=== PATIENT | male | born 1970 | race Caucasian/White ===

== ENCOUNTER 2021-07-07 11:56 | Emergency (ER) | payer OTHER ==
[2021-07-07 13:41] LABS: Absolute Neutrophil Ct (ANC) 7.68 (1.4-6.9); BASOPHIL % 0.4 % (0.0-0.4); Basophil (Absolute #) 0.04 (0-0.4); Eosinophil % 0.2 % (0.00-5.0); Eosinophil (Absolute #) 0.02 (0-0.5); Hematocrit 41.7 % (42-50); Hemoglobin 14.1 gm/dl (12.5-18.0); Lymphocyte (Absolute #) 2.06 (1.0-4.6); Lymphocytes % 19.4 % (24.0-44.0); Mean Cell Volume 92.7 fl (78-100); Mean Corpuscular Hemoglobin 31.3 pg (26-32); Mean Corpuscular Hgb Concent. 33.8 g/dl (32-36); Mean Platelet Volume 10.1 fl (7.5-11.0); Monocytes % 7.5 % (0.0-12.0); Neutrophil % 72.5 % (36.0-66.0); Platelet Count 268 K/mm3 (150-450); White Blood Count 10.6 K/mm3 (4.0-10.5)
[2021-07-07 14:01] LABS: ALBUMIN 4.7 g/dL (3.5-5.0); ALKALINE PHOSPHATASE 74 U/L (38-126); ANION GAP 14.4 MEQ/L (5-15); BLOOD UREA NITROGEN 22 mg/dL (9-20); CHLORIDE 101 mmol/L (98-107); Calcium 10.3 mg/dL (8.4-10.2); Carbon Dioxide 28 mmol/L (22-30); Creatinine 1 1.03 mg/dL (0.66-1.25); EST GLOMERULAR FILTRATION RATE > 60.0 ML/MIN; Glucose 105 mg/dL (74-106); LIPASE 246 U/L (23-300); Potassium 5.1 mmol/L (3.5-5.1); SGOT/AST 36 U/L (17-59); SGPT/ALT 28 U/L (0-50); SODIUM 139 mmol/L (137-145); Total Protein 7.9 g/dL (6.3-8.2)
[2021-07-07] MEDS ORDERED: DOLOPHINE 10MG Tablet PO STA (15:24)
--- NOTE | 2021-07-07 15:39 | XRAY ---
Indication: Abdomen pain. "Withdrawal symptoms." Multiple contiguous axial images obtained through the abdomen and pelvis without contrast. Comparison: None Lung bases demonstrate minimal dependent atelectasis. Heart not enlarged. Noncontrasted stomach and bowel loops appear nonobstructed. Normal air-filled appendix. No free fluid/air. Remaining liver, gallbladder, pancreas, spleen, adrenal glands, kidneys, ureters, bladder, and aorta appear unremarkable for noncontrast exam. Osseous structures intact with mild/moderate degenerative changes throughout the thoracolumbar spine greatest at L3-L4. Also bilateral L3 spondylolysis with 1 cm spondylolisthesis. Impression: 1. Multilevel degenerative spondylosis and L3 spondylolysis with grade 1-[address] abdomen/pelvis without contrast exam is negative.
--- NOTE | 2021-07-07 15:52 | ERPHSYRPT ---
- History of Present Illness Time Seen by Provider: 07/07/21 12:30 Source: patient Patient Subjective Stated Complaint: PT states "I am withdrawing from methadone. I have not had any since ." Triage Nursing Assessment: Pt presented alert and oriented X 3, skin wpd Pt ambulates with an upright steady gait, able to speak in clear full sentences pt in no apprent respiratory distress. Pt moaning. Physician History: Patient is a 51-year-old male presents to our ED for evaluation of methadone withdrawal. Patient is a senior living inmate. He has been sober for the past 4 days. Patient states he has not had methadone in 4 days. Patient normally takes 60 mg of methadone daily. Patient complains of abdominal cramping. Patient states he is mildly nauseous. Patient has diarrhea. The medical staff in the senior living has been treating patient with clonidine Zofran and loperamide. Patient states this is not helping. No chest pain or shortness of breath. No nausea vomiting or diaphoresis. No trauma. Symptoms are mild to moderate in intensity. No specific worsening or improving factors. Patient voices no other complaints or concerns at this time. Severity: moderate Modifying Factors: Improves With: nothing Associated Symptoms: abdominal pain, other (Diarrhea) Allergies/Adverse Reactions: Iodine and Iodide Containing Produc Allergy (Severe, Verified 07/07/21 12:21) throat closes up Home Medications: Methadone HCl 10 mg PO DAILY 07/07/21 [History] Hx Tetanus, Diphtheria Vaccination/Date Given: No Hx Influenza Vaccination/Date Given: No Hx Pneumococcal Vaccination/Date Given: No Immunizations Up to Date: Yes Travel Risk - International Travel Have you traveled outside of the country in past 3 weeks: No - Coronavirus Screening Are you exhibiting any of the following symptoms?: No Close contact with a COVID-19 positive Pt in past 14-21 Days: No - Vaccine Status Have you recieved a Covid-19 vaccination: No - Review of Systems Constitutional: No Symptoms, No Fever, No Chills Eyes: No Symptoms Ears, Nose, & Throat: No Symptoms Respiratory: No Symptoms, No Cough, No Dyspnea Cardiac: No Symptoms, No Chest Pain, No Edema, No Syncope Abdominal/Gastrointestinal: No Symptoms, No Abdominal Pain, No Nausea, No Vomiting, No Diarrhea Genitourinary Symptoms: No Symptoms, No Dysuria Musculoskeletal: No Symptoms, No Back Pain, No Neck Pain Skin: No Symptoms, No Rash Neurological: No Symptoms, No Dizziness, No Focal Weakness, No Sensory Changes Psychological: No Symptoms Endocrine: No Symptoms Hematologic/Lymphatic: No Symptoms Immunological/Allergic: No Symptoms All Other Systems: Reviewed and Negative - Past Medical History Pertinent Past Medical History: No - Past Surgical History Past Surgical History: No - Social History Smoking Status: Former smoker Exposure to second hand smoke: Yes Drug Use: other Patient Lives Alone: No - Nursing Vital Signs Nursing Vital Signs: Initial Vital Signs Temperature 98.1 F 07/07/21 12:11 Pulse Rate 70 07/07/21 12:11 Respiratory Rate 20 07/07/21 12:11 Blood Pressure 128/92 07/07/21 12:11 O2 Sat by Pulse Oximetry 97 07/07/21 12:11 Pain Scale Pain Intensity 4 - Physical Exam General Appearance: no apparent distress, alert Eye Exam: PERRL/EOMI, eyes nml inspection Ears, Nose, Throat Exam: normal ENT inspection, TMs normal, pharynx normal, moist mucous membranes Neck Exam: normal inspection, non-tender, supple, full range of motion Respiratory Exam: normal breath sounds, lungs clear, airway intact, No respiratory distress Cardiovascular Exam: regular rate/rhythm, normal heart sounds, normal peripheral pulses Gastrointestinal/Abdomen Exam: soft, normal bowel sounds, tenderness, other (Generalized abdominal tenderness.), No mass, No guarding Back Exam: normal inspection, normal range of motion, No CVA tenderness, No vertebral tenderness Extremity Exam: normal inspection, normal range of motion, pelvis stable Neurologic Exam: alert, oriented x 3, cooperative, normal mood/affect, sensation nml, No motor deficits Skin Exam: normal color, warm, dry, No rash Lymphatic Exam: No adenopathy SpO2 Interpretation: normal SpO2: 98 O2 Delivery: Room Air - Course Nursing assessment & vital signs reviewed: Yes - CT Exams Abdomen/Pelvis CT Interpretation: Tele-radiologist Report (No acute intra-abdominal pathology. Spine arthritis) Ordered Tests: Active Orders 24 hr Category Date Time Status Director Supply STAT Care 07/07/21 13:23 Completed IV Insertion STAT Care 07/07/21 13:23 Completed Pulse Oximetry (ED) STAT Care 07/07/21 13:23 Completed ABDOMEN AND PELVIS W/0 CONTRAS [CT] Stat Exams 07/07/21 14:58 Completed CBC W DIFF Stat Lab 07/07/21 13:35 Completed CMP Stat Lab 07/07/21 13:35 Completed LIPASE Stat Lab 07/07/21 13:35 Completed TROPONIN Q3H Lab 07/07/21 13:35 Completed Medication Summary Discontinued Medications Generic Name Dose Route Start Last Admin Trade Name Razaq PRN Reason Stop Dose Admin Methadone HCl 60 mg 07/07/21 15:24 07/07/21 15:33 Methadone Hcl 10 Mg Tab PO 07/07/21 15:25 60 mg ONCE STA Administration Lab/Rad Data: Laboratory Result Diagrams 07/07/21 13:35 07/07/21 13:35 Laboratory Results 07/07/21 07/07/21 07/07/21 Range/Units 13:35 13:35 13:35 WBC 10.6 H (4.0-10.5) K/mm3 RBC 4.50 (4.1-5.6) M/mm3 Hgb 14.1 (12.5-18.0) gm/dl Hct 41.7 L (42-50) % MCV 92.7 (78-100) fl MCH 31.3 (26-32) pg MCHC 33.8 (32-36) g/dl RDW 13.0 (11.5-14.0) % Plt Count 268 (150-450) K/mm3 MPV 10.1 (7.5-11.0) fl Gran % 72.5 H (36.0-66.0) % Eos # (Auto) 0.02 (0-0.5) Absolute Lymphs (auto) 2.06 (1.0-4.6) Absolute Monos (auto) 0.80 (0.0-1.3) Lymphocytes % 19.4 L (24.0-44.0) % Monocytes % 7.5 (0.0-12.0) % Eosinophils % 0.2 (0.00-5.0) % Basophils % 0.4 (0.0-0.4) % Absolute Granulocytes 7.68 H (1.4-6.9) Basophils # 0.04 (0-0.4) Sodium 139 (137-145) mmol/L Potassium 5.1 (3.5-5.1) mmol/L Chloride 101 (98-107) mmol/L Carbon Dioxide 28 (22-30) mmol/L Anion Gap 14.4 (5-15) MEQ/L BUN 22 H (9-20) mg/dL Creatinine 1.03 (0.66-1.25) mg/dL Estimated GFR > 60.0 ML/MIN Glucose 105 (74-106) mg/dL Calcium 10.3 H (8.4-10.2) mg/dL Total Bilirubin 0.80 (0.2-1.3) mg/dL AST 36 (17-59) U/L ALT 28 (0-50) U/L Alkaline Phosphatase 74 (38-126) U/L Troponin I < 0.012 (0.000-0.034) ng/mL Serum Total Protein 7.9 (6.3-8.2) g/dL Albumin 4.7 (3.5-5.0) g/dL Lipase 246 (23-300) U/L - Progress Progress: improved Progress Note: We contacted medical staff at the senior living. They will work on weaning patient off of his methadone. We will provide patient with a 60 mg of methadone today. We attempted to call the clinic to confirm the dosage however they were closed. Patient feels well at this time, after administration of methadone. He voices no other complaints or concerns at this time. Will discharge to senior living Portions of this note were created with voice recognition technology. There may be grammatical, spelling, punctuation or sound alike errors 07/07/21 16:36 Counseled pt/family regarding: diagnosis, need for follow-up, rad results - Departure Departure Disposition: Home (Spondylolisthesis) Clinical Impression: Arthritis of spine, Spondylolysis, Spondylolisthesis, Methadone withdrawal Condition: Stable Critical Care Time: No Referrals: DOCTOR,NO FAMILY [Primary Care Provider] - Follow up/PCP as directed Additional Instructions: Discharge/Care Plan FAIZAKARUNA Reynoso was seen on 07/07/21 in the Emergency Room. The patient was counseled regarding Diagnosis,Lab results, Imaging studies, need for follow up and when to return to the Emergency Room. Prescriptions given: Discharge Note I have spoken with the patient and/or caregivers. I have explained the patient's condition, diagnosis and treatment plan based on the information available to me at this time. I have answered the patient's and/or caregiver's questions and addressed any concerns. The patient and/or caregivers have as good understanding of the patient's diagnosis, condition and treatment plan as can be expected at this point. The vital signs have been stable. The patient's condition is stable and appropriate for discharge from the emergency department. The patient will pursue further outpatient evaluation with the primary care physician or other designated or consulting physician as outlined in the discharge instructions. The patient and/or caregivers are agreeable to this plan of care and follow-up instructions have been explained in detail. The patient and/or caregivers have received these instruction. The patient/and or caregivers are aware that any significant change in condition or worsening of symptoms should prompt an immediate return to this or the closest emergency department or call 911.
== END 2021-07-07 16:03 | disposition home or self-care (01) ==
LOC: ED 11:56
DX: F11.23 Opioid dependence with withdrawal (principal); R10.9 Unspecified abdominal pain; R19.7 Diarrhea, unspecified; M43.10 Spondylolisthesis, site unspecified; M47.9 Spondylosis, unspecified
CPT/HCPCS: 36000; 36415; 74176; 80053; 83690; 84484; 85025; 93041; 94760; 99284; A9270-GY

== ENCOUNTER 2024-06-27 16:13 | Observation (INO) | payer OTHER ==
[2024-06-27] MEDS ORDERED: Zofran 4 MG/2 ML VIAL ONE (16:25)
[2024-06-27] MEDS ORDERED: MORPHINE SULFATE 4 MG INJ ONE (16:26)
[2024-06-27] MEDS ORDERED: Sodium Chloride 0.9% 1000 ML 1,000 ML ONE (16:26)
[2024-06-27] MEDS: Sodium Chloride 0.9% 1000 ML 1,000 ML IV STA (16:27)
[2024-06-27] MEDS: Zofran 4 MG/2 ML VIAL IV ONE (16:28)
[2024-06-27] MEDS: MORPHINE SULFATE 4 MG INJ IV ONE (16:29)
--- NOTE | 2024-06-27 16:29 | ERPHSYRPT ---
- History of Present Illness Time Seen by Provider: 06/27/24 16:26 Source: patient Exam Limitations: no limitations Physician History: 54-year-old male presents to our ED via EMS for evaluation of a laceration to his left forearm. 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 Injury occur red just prior to arrival. Upon arrival patient had a tourniquet to his left upper extremity. No obvious pulse observed. We let the tourniquet down. Radial pulse not palpable. No active bleeding at the injury site. Patient reports that his tetanus is up-to-date. There appears to be sensation to light touch at the hands. However wrist extension appears to be compromised. The injury is near the general location of the radial nerve. Patient states otherwise healthy. He voices no other complaints or concerns at this time. Portions of this note were created with voice recognition technology. There may be grammatical, spelling, punctuation or sound alike errors Timing/Duration: today Severity: moderate Modifying Factors: Improves With: nothing Associated Symptoms: denies symptoms Allergies/Adverse Reactions: Iodine and Iodide Containing Produc Allergy (Severe, Verified 06/27/24 16:31) throat closes up Home Medications: Acyclovir 400 mg PO UD 06/27/24 [History] Buspirone HCl 5 mg [Buspar 5 mg] 10 mg PO BID 06/27/24 [History] Prazosin HCl 2 mg PO HS 06/27/24 [History] buprenorphine HCL [Buprenorphine HCl] 8 mg SL TID 06/27/24 [History] Hx Tetanus, Diphtheria Vaccination/Date Given: No Hx Influenza Vaccination/Date Given: No Hx Pneumococcal Vaccination/Date Given: No - Review of Systems Constitutional: No Symptoms, No Fever, No Chills Eyes: No Symptoms Ears, Nose, & Throat: No Symptoms Respiratory: No Symptoms, No Cough, No Dyspnea Cardiac: No Symptoms, No Chest Pain, No Edema, No Syncope Abdominal/Gastrointestinal: No Symptoms, No Abdominal Pain, No Nausea, No Vo miting, No Diarrhea Genitourinary Symptoms: No Symptoms, No Dysuria Musculoskeletal: No Symptoms, No Back Pain, No Neck Pain Skin: No Symptoms, No Rash Neurological: No Symptoms, No Dizziness, No Focal Weakness, No Sensory Changes Psychological: No Symptoms Endocrine: No Symptoms Hematologic/Lymphatic: No Symptoms Immunological/Allergic: No Symptoms All Other Systems: Reviewed and Negative - Past Medical History Pertinent Past Medical History: No - Past Surgical History Past Surgical History: No - Social History Smoking Status: Former smoker Exposure to second hand smoke: Yes Drug Use: other Patient Lives Alone: No - Nursing Vital Signs Nursing Vital Signs: Initial Vital Signs Temperature 97.0 F 06/27/24 16:17 Pulse Rate 87 06/27/24 16:17 Blood Pressure 115/71 06/27/24 16:17 O2 Sat by Pulse Oximetry 96 06/27/24 16:17 Pain Scale Pain Intensity 4 - Physical Exam General Appearance: no apparent distress, alert Eye Exam: PERRL/EOMI, eyes nml inspection Ears, Nose, Throat Exam: normal ENT inspection, pharynx normal, moist mucous membranes Neck Exam: normal inspection, non-tender, supple, full range of motion Respiratory Exam: normal breath sounds, lungs clear, airway intact, No respiratory distress Cardiovascular Exam: regular rate/rhythm, normal heart sounds, normal peripheral pulses Gastrointestinal/Abdomen Exam: soft, normal bowel sounds, No tenderness, No mass Back Exam: normal inspection, normal range of motion, No CVA tenderness, No vertebral tenderness Extremity Exam: normal inspection, normal range of motion, pelvis stable Neurologic Exam: alert, oriented x 3, cooperative, normal mood/affect, sensation nml, No motor deficits Skin Exam: normal color, warm, dry, No rash Lymphatic Exam: No adenopathy SpO2 Interpretation: normal O2 Delivery: Room Air - Course Nursing assessment & vital signs reviewed: Yes - Radiology Exams Forearm X-ray Interpretation: Interpreted by me (No fracture or dislocation) Ordered Tests: Active Orders 24 hr Category Date Time Status Consent,Obtain ROUTINE Care 06/27/24 17:31 Active IV Insertion STAT Care 06/27/24 16:17 Active NPO except Meds Diet 06/28/24 00:01 Active FOREARM Stat Exams 06/27/24 16:14 Completed CBC W DIFF Stat Lab 06/27/24 16:28 Completed CMP Stat Lab 06/27/24 16:28 Completed Transfer Order Routine Transfer 06/27/24 Ordered Medication Summary Generic Name Dose Route Start Last Admin Trade Name Freq PRN Reason Stop Dose Admin Cefazolin Sodium 2 gm in 100 mls @ 200 mls/hr 06/27/24 17:45 Cefazolin 2 Gm/100 Ml Nacl IV 07/27/24 17:44 ONCALLTOOR ABBIE Cefazolin Sodium 2 gm in 100 mls @ 200 mls/hr 06/27/24 17:32 Cefazolin 2 Gm/100 Ml Nacl IV 06/27/24 18:01 STAT STA Discontinued Medications Generic Name Dose Route Start Last Admin Trade Name Chavo PRN Reason Stop Dose Admin Sodium Chloride 1,000 mls @ 999 mls/hr 06/27/24 16:17 06/27/24 16:27 Sodium Chloride 0.9% 1000 Ml IV 06/27/24 17:17 999 mls/hr .Q1H1M STA Administration Sodium Chloride Confirm 06/27/24 16:26 Sodium Chloride 0.9% 1000 Ml Administered 06/27/24 16:27 Dose 1,000 mls @ ud .ROUTE .STK-MED ONE Lidocaine/Epinephrine 20 ml 06/27/24 16:54 Lidocaine Hcl/Epinephrine 1% 20 Ml IJ 06/27/24 16:55 STAT ONE Lidocaine/Epinephrine Confirm 06/27/24 16:56 Lidocaine Hcl/Epinephrine 1% 20 Ml Administered 06/27/24 16:57 Dose 20 ml .ROUTE .STK-MED ONE Morphine Sulfate 4 mg 06/27/24 16:17 06/27/24 16:29 Morphine Sulfate 4 Mg/Ml Injection IV 06/27/24 16:18 4 mg STAT ONE Administration Morphine Sulfate Confirm 06/27/24 16:26 Morphine Sulfate 4 Mg/Ml Injection Administered 06/27/24 16:27 Dose 4 mg .ROUTE .STK-MED ONE Ondansetron HCl 4 mg 06/27/24 16:17 06/27/24 16:28 Ondansetron Hcl 4 Mg/2 Ml Vial IV 06/27/24 16:18 4 mg STAT ONE Administration Ondansetron HCl Confirm 06/27/24 16:25 Ondansetron Hcl 4 Mg/2 Ml Vial Administered 06/27/24 16:26 Dose 4 mg .ROUTE .STK-MED ONE Lab/Rad Data: Laboratory Result Diagrams 06/27/24 16:28 06/27/24 16:28 Laboratory Results 06/27/24 06/27/24 Range/Units 16:28 16:28 WBC 8.6 (4.23-9.07) x10^3/uL RBC 3.80 L (4.63-6.08) x10^6/uL Hgb 12.2 L (13.7-17.5) g/dL Hct 34.8 L (40.1-51.0) % MCV 91.6 (79.0-92.2) fL MCH 32.1 (25.7-32.2) pg MCHC 35.1 (32.3-36.5) g/dL RDW 11.6 (11.6-14.4) % Plt Count 233 (163-337) x10^3/uL MPV 10.0 (9.4-12.4) fL Gran % 50.6 (34.0-67.9) % Immature Gran % (Auto) 0.2 (0.001-0.429) % Nucleat RBC Rel Count 0.0 (0.00-0.2) % Eos # (Auto) 0.49 (0.04-0.54) x10^3/uL Immature Gran # (Auto) 0.02 (0.001-0.031) x10^3u/L Absolute Lymphs (auto) 3.16 (1.32-3.57) x10^3/uL Absolute Monos (auto) 0.54 (0.30-0.82) x10^3/uL Absolute Nucleated RBC 0.00 (0.00-0.012) x10^3u/L Lymphocytes % 36.6 (21.8-53.1) % Monocytes % 6.3 (5.3-12.2) % Eosinophils % 5.7 (0.8-7.0) % Basophils % 0.6 (0.2-1.2) % Absolute Granulocytes 4.37 (1.78-5.38) x10^3/uL Basophils # 0.05 (0.01-0.08) x10^3/uL Sodium 141 (135-145) mmol/L Potassium 3.9 (3.5-5.1) mmol/L Chloride 104 (98-107) mmol/L Carbon Dioxide 23 (22-30) mmol/L Anion Gap 17.8 H (5-15) MEQ/L BUN 19 (9-20) mg/dL Creatinine 1.15 (0.66-1.25) mg/dL Estimated GFR 76.1 ML/MIN Glucose 148 H (74-106) mg/dL Calcium 9.3 (8.4-10.2) mg/dL Total Bilirubin 0.40 (0.2-1.3) mg/dL AST 33 (17-59) U/L ALT 25 (0-50) U/L Alkaline Phosphatase 61 (38-126) U/L Serum Total Protein 7.4 (6.3-8.2) g/dL Albumin 4.3 (3.5-5.0) g/dL - Progress Progress: improved Progress Note: Spoke to orthopedic surgery Dr. Way at approximately 4:[address] arrived at approximately 4:[address] evaluated patient at bedside and advised hospitalization for surgical repair in the morning. We will admit patient to hospitalist with Dr. Way, orthopedics on consult. Plan of care discussed with patient. Patient agrees to admission at [facility] for further evaluation and treatment. 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 X-ray negative for fracture dislocation. Portions of this note were created with voice recognition technology. There may be grammatical, spelling, punctuation or sound alike errors 06/27/24 17:18 Complexity problem addressed is moderate acute complicated. No critical care time. Complex of data reviewed and analyzed is extensive. Test ordered test re viewed results analyzed and correlated clinically with history and physical exam. Management discussed with orthopedic surgery and hospitalist who accepts admission to observation. Risk of complication and risk of morbidity/mortality patient management is high. Patient requires hospitalization for further evaluation and treatment. Vital stable. Time spent admit patient approximately 20 minutes. Plan of care established for shared decision making. No social determinants of health present to impede follow-up. Portions of this note were created with voice recognition technology. There may be grammatical, spelling, punctuation or sound alike errors Counseled pt/family regarding: diagnosis, need for follow-up, rad results - Departure Departure Disposition: Observation Clinical Impression: Arm laceration Condition: Stable Critical Care Time: No Referrals: DOCTOR,NO FAMILY [Primary Care Provider] - Follow up/PCP as directed
[2024-06-27 16:33] LABS: Absolute Neutrophil Ct (ANC) 4.37 x10^3/uL (1.78-5.38); BASOPHIL % 0.6 % (0.2-1.2); Basophil (Absolute #) 0.05 x10^3/uL (0.01-0.08); Eosinophil % 5.7 % (0.8-7.0); Eosinophil (Absolute #) 0.49 x10^3/uL (0.04-0.54); Hematocrit 34.8 % (40.1-51.0); Hemoglobin 12.2 g/dL (13.7-17.5); IMMATURE GRAN # 0.02 x10^3u/L (0.001-0.031); IMMATURE GRAN % 0.2 % (0.001-0.429); Lymphocyte (Absolute #) 3.16 x10^3/uL (1.32-3.57); Lymphocytes % 36.6 % (21.8-53.1); Mean Cell Volume 91.6 fL (79.0-92.2); Mean Corpuscular Hemoglobin 32.1 pg (25.7-32.2); Mean Corpuscular Hgb Concent. 35.1 g/dL (32.3-36.5); Monocyte (Absolute #) 0.54 x10^3/uL (0.30-0.82); Monocytes % 6.3 % (5.3-12.2); Neutrophil % 50.6 % (34.0-67.9); Platelet Count 233 x10^3/uL (163-337); Red Cell Distribution Width 11.6 % (11.6-14.4); White Blood Count 8.6 x10^3/uL (4.23-9.07)
[2024-06-27 16:46] LABS: ALBUMIN 4.3 g/dL (3.5-5.0); ANION GAP 17.8 MEQ/L (5-15); BILIRUBIN,TOTAL 0.4 mg/dL (0.2-1.3); Calcium 9.3 mg/dL (8.4-10.2); Creatinine 1 1.15 mg/dL (0.66-1.25); EST GLOMERULAR FILTRATION RATE 76.1 ML/MIN; Potassium 3.9 mmol/L (3.5-5.1); Total Protein 7.4 g/dL (6.3-8.2)
--- NOTE | 2024-06-27 16:48 | XRAY ---
Indication: Laceration. Pain. Comparison: None 3 projections left forearm demonstrates proximal soft tissue laceration lateral to radius. No other bony, articular, or soft tissue abnormalities.
[2024-06-27] MEDS ORDERED: XYLOCAINE 1%/Epi 1:100000 MDV 20 ML ONE (16:56)
--- NOTE | 2024-06-27 17:30 | PCM.CONS ---
History of Present Illness - Consult Date of Consultation Date: 06/27/24 Consulting Provider: SADIQ MCHUGH MD - [facility] History of Present Illness: is a 54 year old male.[id number]-exob-[id number] who lacerated his left proximal dorsal forearm at about 4 PM today at work using a precision grinder. 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 He had prior laceration of the wrist in the past which was not treated surgically.He has a moderate amount of pain now. He has some numbness in all digits but had a tourniquet applied by EMS which was released later by the emergency room.He had no other injuries.Patient has no chest pain shortness of breath fevers or chills. Medications & Allergies Home Medications: Home Medication List Acyclovir 400 mg PO UD 06/27/24 [History Confirmed 06/27/24] Buspirone HCl 5 mg [Buspar 5 mg] 10 mg PO BID 06/27/24 [History Confirmed 06/27/24] Prazosin HCl 2 mg PO HS 06/27/24 [History Confirmed 06/27/24] buprenorphine HCL [Buprenorphine HCl] 8 mg SL TID 06/27/24 [History Confirmed 06/27/24] Allergies/Adverse Reactions: Allergies Allergy/AdvReac Type Severity Reaction Status Date / Time Iodine and Iodide Containing Allergy Severe throat Verified 06/27/24 16:31 Produc closes up - Past Medical History Past Medical History: No - Past Surgical History Past Surgical History: No - Social History Smoking Status: Former smoker Exposure to second hand smoke: Yes Alcohol: None Drug Use: other - Social Determinants of Health Will the patient participate in the screening: Yes Do you worry about a steady place to live?: No Do you have any problems with any of the following?: No known problems In the past 12 months,have you had to go without utilities?: No Have you or anyone in your house had to go without enough: No Transportation Issues: No Has anyone in your support network made you feel unsafe?: No - Nursing Vital Signs Nursing Vital Signs: Vital Signs - 24 hr Temp Pulse Resp BP BP Pulse Ox 06/27/24 17:00 69 18 123/82 100 06/27/24 16:30 114/63 98 06/27/24 16:17 97.0 F 87 115/71 96 - Physical Exam SpO2: 100 - Narrative Narrative Physical Exam: Ortho Physical Exam Pleasant male, no apparent stress, alert and O x 3, normal height and weight Left forearm shows about a 5 cm transverse laceration along the dorsalAspect of the forearm. There is only mild bleeding. Patient is able to extend and flex his wrist 5/5 able to flex and extend all digits 5/5.Has decree sensation in all digits on the dorsal and volar surfaces and feel that this is likely tourniquet related. 2+ radial pulse. Has some numbness along the dorsal forearm. Patient consented to exploration the wound which was anesthetized with 20 cc of 1% plain lidocaine with epinephrine. The wound was explored explored with significant muscle belly laceration no arteries or nerves or tendons seen lacerated.The wound was irrigated out and then the skin was closed with 3-0 nylon X-rays showed no fractures of the forearm no foreign bodies Assessment/Plan (1) Laceration of left forearm with complication Current Visit: Yes Status: Acute Assessment & Plan: Assessment is left forearm laceration with muscle lacerationPossible injury to the lateral antebrachialCutaneous nerve Plan:Since patient had solid food 1 hour ago, went ahead and washed the wound out with saline and then closed the skin. Will plan on taking to the OR for exploration and repair of the muscle belly and the cutaneous nerve if seen.Signs of risk include bleeding, infection, damage to nerves or blood vessels, possible need for further surgery, weakness or stiffness, and the risk of medical anesthetic complications clean the risk of .Patient is is being admitted to the hospitalist will be n.p.o. after midnight.Patient will receive Kefzol from the ER doctor. Code(s): S51.812A - LACERATION WITHOUT FOREIGN BODY OF LEFT FOREARM, INIT ENCNTR Results - Labs Lab/Micro Results: Lab Results-Last 24 Hours 06/27/24 06/27/24 Range/Units 16:28 16:28 WBC 8.6 (4.23-9.07) x10^3/uL RBC 3.80 L (4.63-6.08) x10^6/uL Hgb 12.2 L (13.7-17.5) g/dL Hct 34.8 L (40.1-51.0) % MCV 91.6 (79.0-92.2) fL MCH 32.1 (25.7-32.2) pg MCHC 35.1 (32.3-36.5) g/dL RDW 11.6 (11.6-14.4) % Plt Count 233 (163-337) x10^3/uL MPV 10.0 (9.4-12.4) fL Gran % 50.6 (34.0-67.9) % Immature Gran % (Auto) 0.2 (0.001-0.429) % Nucleat RBC Rel Count 0.0 (0.00-0.2) % Eos # (Auto) 0.49 (0.04-0.54) x10^3/uL Immature Gran # (Auto) 0.02 (0.001-0.031) x10^3u/L Absolute Lymphs (auto) 3.16 (1.32-3.57) x10^3/uL Absolute Monos (auto) 0.54 (0.30-0.82) x10^3/uL Absolute Nucleated RBC 0.00 (0.00-0.012) x10^3u/L Lymphocytes % 36.6 (21.8-53.1) % Monocytes % 6.3 (5.3-12.2) % Eosinophils % 5.7 (0.8-7.0) % Basophils % 0.6 (0.2-1.2) % Absolute Granulocytes 4.37 (1.78-5.38) x10^3/uL Basophils # 0.05 (0.01-0.08) x10^3/uL Sodium 141 (135-145) mmol/L Potassium 3.9 (3.5-5.1) mmol/L Chloride 104 (98-107) mmol/L Carbon Dioxide 23 (22-30) mmol/L Anion Gap 17.8 H (5-15) MEQ/L BUN 19 (9-20) mg/dL Creatinine 1.15 (0.66-1.25) mg/dL Estimated GFR 76.1 ML/MIN Glucose 148 H (74-106) mg/dL Calcium 9.3 (8.4-10.2) mg/dL Total Bilirubin 0.40 (0.2-1.3) mg/dL AST 33 (17-59) U/L ALT 25 (0-50) U/L Alkaline Phosphatase 61 (38-126) U/L Serum Total Protein 7.4 (6.3-8.2) g/dL Albumin 4.3 (3.5-5.0) g/dL - Radiology Impressions Radiology Exams & Impressions: Radiology Procedures Category Date Time Status FOREARM Stat Exams 06/27/24 16:14 Completed
[2024-06-27] MEDS: XYLOCAINE 1%/Epi 1:100000 MDV 20 ML IJ ONE (17:38)
[2024-06-27] MEDS: CEFAZOLIN 2 GM/100 ML NaCl 2 GM/100 ML IVPB IV STA (17:39)
[2024-06-27] MEDS ORDERED: CEFAZOLIN 2 GM/100 ML NaCl 2 GM/100 ML IVPB IV SCH (17:45)
--- NOTE | 2024-06-27 18:17 | PCM.HP ---
History of Present Illness - Chief Complaint Chief Complaint: Muscle laceration, left arm Date: 06/27/24 History of Present Illness: is a 54 year old male with a pmhx of anxiety who presented to ED 06/27/24 after lacerating his left forearm using a external grinder during work at approximately 4pm today . 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 Patient currently is rating his pain 10/10 on a numerical pain scale. Pain is constant and throbbing. No motor deficits. Some numbness in his fingers. No other injury or complaints. Xray of the left forearm demonstrates proximal soft tissue laceration lateral to the radius. Labs remarkable for normocytic anemia with hgb at 12.2, and GAP at 17.8. Ortho consulted with plans for exploration and repair of the muscle belly and the cutaneous nerve if seen. Patient received Cefazolin, morphine, and IVF bolus in ED. Wound was washed out with saline by ortho. - Review of Systems Constitutional: No Symptoms Eyes: No Symptoms Ears, Nose, & Throat: No Symptoms Respiratory: No Symptoms Cardiac: No Symptoms Abdominal/Gastrointestinal: No Symptoms Genitourinary Symptoms: No Symptoms Musculoskeletal: Deformity (left pinky tip amputation) Skin: Other (eft forearm laceration ) Neurological: No Symptoms Psychological: No Symptoms Endocrine: No Symptoms Hematologic/Lymphatic: No Symptoms Immunological/Allergic: No Symptoms Medications & Allergies Home Medications: Home Medication List Acyclovir 400 mg PO UD 06/27/24 [History Confirmed 06/27/24] Buspirone HCl 5 mg [Buspar 5 mg] 10 mg PO BID 06/27/24 [History Confirmed 06/27/24] Prazosin HCl 2 mg PO HS 06/27/24 [History Confirmed 06/27/24] buprenorphine HCL [Buprenorphine HCl] 8 mg SL TID 06/27/24 [History Confirmed 06/27/24] Allergies/Adverse Reactions: Allergies Allergy/AdvReac Type Severity Reaction Status Date / Time Iodine and Iodide Containing Allergy Severe throat Verified 06/27/24 16:31 Produc closes up Penicillins Allergy Unknown Verified 06/27/24 18:04 - Past Medical History Past Medical History: No Neurological History: No Pertinent History ENT History: No Pertinent History Cardiac History: No Pertinent History Respiratory History: No Pertinent History Endocrine Medical History: No Pertinent History Musculoskelatal History: No Pertinent History GI Medical History: No Pertinent History History: No Pertinent History Pyscho-Social History: Anxiety Male Reproductive Disorders: No Pertinent History - Past Surgical History Past Surgical History: No Neuro Surgical History: No Pertinent History Cardiac History: No Pertinent History Respiratory Surgery: No Pertinent History GI Surgical History: No Pertinent History Genitourinary Surgical Hx: No Pertinent History Musculskeletal Surgical Hx: Amputation (left pinky finger tip) Male Surgical History: No Pertinent History Significant Family History: heart disease, cancer - Social History Smoking Status: Former smoker Exposure to second hand smoke: Yes Alcohol: None Drug Use: other - Social Determinants of Health Will the patient participate in the screening: Yes Do you worry about a steady place to live?: No Do you have any problems with any of the following?: No known problems In the past 12 months,have you had to go without utilities?: No Have you or anyone in your house had to go without enough: No Transportation Issues: No Has anyone in your support network made you feel unsafe?: No - Physical Exam Vital Signs: Vital Signs - 24 hr Temp Pulse Resp BP BP Pulse Ox 06/27/24 18:00 97.9 F 80 18 143/73 100 06/27/24 17:30 100 06/27/24 17:00 69 18 123/82 100 06/27/24 16:30 114/63 98 06/27/24 16:17 97.0 F 87 115/71 96 General Appearance: no apparent distress Neurologic Exam: alert, oriented x 3, cooperative Eye Exam: PERRL/EOMI Ears, Nose, Throat Exam: normal ENT inspection Neck Exam: normal inspection Respiratory Exam: normal breath sounds, lungs clear Cardiovascular Exam: regular rate/rhythm, normal heart sounds Rectal Exam: deferred Back Exam: normal inspection Extremity Exam: other (Left forearm covered in dressing) Results - Labs Lab/Micro Results: Lab Results-Last 24 Hours 06/27/24 06/27/24 Range/Units 16:28 16:28 WBC 8.6 (4.23-9.07) x10^3/uL RBC 3.80 L (4.63-6.08) x10^6/uL Hgb 12.2 L (13.7-17.5) g/dL Hct 34.8 L (40.1-51.0) % MCV 91.6 (79.0-92.2) fL MCH 32.1 (25.7-32.2) pg MCHC 35.1 (32.3-36.5) g/dL RDW 11.6 (11.6-14.4) % Plt Count 233 (163-337) x10^3/uL MPV 10.0 (9.4-12.4) fL Gran % 50.6 (34.0-67.9) % Immature Gran % (Auto) 0.2 (0.001-0.429) % Nucleat RBC Rel Count 0.0 (0.00-0.2) % Eos # (Auto) 0.49 (0.04-0.54) x10^3/uL Immature Gran # (Auto) 0.02 (0.001-0.031) x10^3u/L Absolute Lymphs (auto) 3.16 (1.32-3.57) x10^3/uL Absolute Monos (auto) 0.54 (0.30-0.82) x10^3/uL Absolute Nucleated RBC 0.00 (0.00-0.012) x10^3u/L Lymphocytes % 36.6 (21.8-53.1) % Monocytes % 6.3 (5.3-12.2) % Eosinophils % 5.7 (0.8-7.0) % Basophils % 0.6 (0.2-1.2) % Absolute Granulocytes 4.37 (1.78-5.38) x10^3/uL Basophils # 0.05 (0.01-0.08) x10^3/uL Sodium 141 (135-145) mmol/L Potassium 3.9 (3.5-5.1) mmol/L Chloride 104 (98-107) mmol/L Carbon Dioxide 23 (22-30) mmol/L Anion Gap 17.8 H (5-15) MEQ/L BUN 19 (9-20) mg/dL Creatinine 1.15 (0.66-1.25) mg/dL Estimated GFR 76.1 ML/MIN Glucose 148 H (74-106) mg/dL Calcium 9.3 (8.4-10.2) mg/dL Total Bilirubin 0.40 (0.2-1.3) mg/dL AST 33 (17-59) U/L ALT 25 (0-50) U/L Alkaline Phosphatase 61 (38-126) U/L Serum Total Protein 7.4 (6.3-8.2) g/dL Albumin 4.3 (3.5-5.0) g/dL - Radiology Impressions Radiology Exams & Impressions: Radiology Procedures Category Date Time Status FOREARM Stat Exams 06/27/24 16:14 Completed Assessment/Plan (1) Laceration of left forearm with complication Current Visit: Yes Status: Acute Assessment & Plan: -xray of the left forearm demonstrates proximal soft tissue laceration lateral to the radius -Ortho consulted, note reviewed, agree with plan for surgical intervention 06/28/24 for exploration and repair of the muscle belly and the cutaneous nerve if seen -Cefazolin given in ED -Reviewed CMP and CBC -NPO after midnight -Hold anticoagulation Code(s): S51.812A - LACERATION WITHOUT FOREIGN BODY OF LEFT FOREARM, INIT ENCNTR (2) Anxiety Current Visit: Yes Status: Acute Assessment & Plan: -continue home meds Code(s): F41.9 - ANXIETY DISORDER, UNSPECIFIED (3) Normocytic anemia Current Visit: Yes Status: Acute Assessment & Plan: -CBC reviewed, hgb at 12.2- will monitor and replace if hgb <7 VTE: bilateral SCD Dispo: 1-2 days Code(s): D64.9 - ANEMIA, UNSPECIFIED Telemedicine Encounter - Telemedicine Encounter Telemedicine Encounter: "The entirety of this encounter was performed via Telemedicine" This visit was performed using real-time audio and video connection between my location and thepatients locationwith the assistance of a surrogateat the patients location. Written or verbal consent was obtained from the patient /guardian to perform this visit [facility]. Any patient questions regarding the telemedicine interaction were answered.
[2024-06-27] MEDS ORDERED: Zofran 4 MG/2 ML VIAL IV PRN (18:28)
[2024-06-27] MEDS ORDERED: Docusate Sodium 100 MG PO PRN (18:28)
[2024-06-27] MEDS ORDERED: NARCAN 2 MG/2 ML IV PRN (20:30)
[2024-06-27] MEDS ORDERED: Sodium Chloride 0.9% 500 ML 500 ML IV ONE (20:37)
[2024-06-27] MEDS: MORPHINE SULFATE 4 MG INJ IV STA (21:08)
[2024-06-27] MEDS: Morphine PCA 1 MG/ML IV PRN (21:09)
[2024-06-28] MEDS: ACYCLOVIR PO PRN (03:07)
--- NOTE | 2024-06-28 05:09 | PCM.NOTE ---
Date and Time: 06/28/24 0508 Subjective Assessment: History of Present Illness: is a 54 year old male with a pmhx of anxiety who presented to ED after lacerating his left forearm using a mud grinder during work at approximately 4pm today . 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 Patient currently is rating his pain 10/10 on a numerical pain scale. Pain is constant and throbbing. No motor deficits. Some numbness in his fingers. No other injury or complaints. Xray of the left forearm demonstrates proximal soft tissue laceration lateral to the radius. Labs remarkable for normocytic anemia with hgb at 12.2, and GAP at 17.8. Ortho consulted with plans for exploration and repair of the muscle belly and the cutaneous nerve if seen. Patient received Cefazolin, morphine, and IVF bolus in ED. Wound was washed out with saline by ortho. Objective Exam Wound Assessment: Skin/Wound Assessment Wound/Incision Assessment Start: 06/27/24 18:16 Text: Status: Active Freq: Q4H Protocol: Document 06/28/24 04:00 LB (Rec: 06/28/24 05:02 LB [id number]) Wound/Incision Assessment Left Lower Arm Wound Assessment Shift Assessment Wound Type Laceration Wound Stage Non Pressure Wound Comment dressing in place Wound Photo Photo Taken No Objective Data Vital Signs: Vital Signs - 24 hr Temp Pulse Resp BP BP Pulse Ox 06/28/24 04:49 18 96 06/28/24 04:00 18 06/28/24 03:39 97.4 F 53 L 18 139/80 96 06/28/24 01:09 18 94 L 06/28/24 00:00 18 06/27/24 23:30 98.1 F 52 L 18 133/82 94 L 06/27/24 21:46 97.9 F 80 18 143/73 100 06/27/24 21:09 18 100 06/27/24 20:00 97.9 F 80 18 143/73 100 06/27/24 18:00 97.9 F 80 18 143/73 100 06/27/24 17:30 100 06/27/24 17:00 69 18 123/82 100 06/27/24 16:30 114/63 98 06/27/24 16:17 97.0 F 87 115/71 96 Pain Assessment - Last Documented Pain Intensity 10 Pain Scale Used 0-10 Pain Scale Intake and Output: Intake & Output 06/25/24 06/26/24 06/27/24 06/28/24 11:59 11:59 11:59 11:59 Output Total 650 Balance -650 Weight 83.915 kg Lab Results: Lab Results-Last 24 Hours 06/27/24 06/27/24 Range/Units 16:28 16:28 WBC 8.6 (4.23-9.07) x10^3/uL RBC 3.80 L (4.63-6.08) x10^6/uL Hgb 12.2 L (13.7-17.5) g/dL Hct 34.8 L (40.1-51.0) % MCV 91.6 (79.0-92.2) fL MCH 32.1 (25.7-32.2) pg MCHC 35.1 (32.3-36.5) g/dL RDW 11.6 (11.6-14.4) % Plt Count 233 (163-337) x10^3/uL MPV 10.0 (9.4-12.4) fL Gran % 50.6 (34.0-67.9) % Immature Gran % (Auto) 0.2 (0.001-0.429) % Nucleat RBC Rel Count 0.0 (0.00-0.2) % Eos # (Auto) 0.49 (0.04-0.54) x10^3/uL Immature Gran # (Auto) 0.02 (0.001-0.031) x10^3u/L Absolute Lymphs (auto) 3.16 (1.32-3.57) x10^3/uL Absolute Monos (auto) 0.54 (0.30-0.82) x10^3/uL Absolute Nucleated RBC 0.00 (0.00-0.012) x10^3u/L Lymphocytes % 36.6 (21.8-53.1) % Monocytes % 6.3 (5.3-12.2) % Eosinophils % 5.7 (0.8-7.0) % Basophils % 0.6 (0.2-1.2) % Absolute Granulocytes 4.37 (1.78-5.38) x10^3/uL Basophils # 0.05 (0.01-0.08) x10^3/uL Sodium 141 (135-145) mmol/L Potassium 3.9 (3.5-5.1) mmol/L Chloride 104 (98-107) mmol/L Carbon Dioxide 23 (22-30) mmol/L Anion Gap 17.8 H (5-15) MEQ/L BUN 19 (9-20) mg/dL Creatinine 1.15 (0.66-1.25) mg/dL Estimated GFR 76.1 ML/MIN Glucose 148 H (74-106) mg/dL Calcium 9.3 (8.4-10.2) mg/dL Total Bilirubin 0.40 (0.2-1.3) mg/dL AST 33 (17-59) U/L ALT 25 (0-50) U/L Alkaline Phosphatase 61 (38-126) U/L Serum Total Protein 7.4 (6.3-8.2) g/dL Albumin 4.3 (3.5-5.0) g/dL Radiology Exams: Radiology Procedures Category Date Time Status FOREARM Stat Exams 06/27/24 16:14 Completed Assessment/Plan (1) Laceration of left forearm with complication Current Visit: Yes Status: Acute Assessment & Plan: -xray of the left forearm demonstrates proximal soft tissue laceration lateral to the radius -Ortho consulted, note reviewed, agree with plan for surgical intervention 06/28/24 for exploration and repair of the muscle belly and the cutaneous nerve if seen -Cefazolin given in ED -Reviewed CMP and CBC -NPO after midnight -Hold anticoagulation Code(s): S51.812A - LACERATION WITHOUT FOREIGN BODY OF LEFT FOREARM, INIT ENCNTR (2) Anxiety Current Visit: Yes Status: Acute Assessment & Plan: -continue home meds Code(s): F41.9 - ANXIETY DISORDER, UNSPECIFIED (3) Normocytic anemia Current Visit: Yes Status: Acute Assessment & Plan: -CBC reviewed, hgb at 12.2- will monitor and replace if hgb <7 VTE: bilateral SCD Dispo: 1-2 days Code(s): S51.812A - LACERATION WITHOUT FOREIGN BODY OF LEFT FOREARM, INIT ENCNTR (2) Anxiety Current Visit: Yes Status: Acute Code(s): F41.9 - ANXIETY DISORDER, UNSPECIFIED (3) Normocytic anemia Current Visit: Yes Status: Acute Code(s): D64.9 - ANEMIA, UNSPECIFIED
[2024-06-28 06:04] LABS: Absolute Neutrophil Ct (ANC) 4.86 x10^3/uL (1.78-5.38); BASOPHIL % 0.4 % (0.2-1.2); Basophil (Absolute #) 0.03 x10^3/uL (0.01-0.08); Eosinophil % 4.5 % (0.8-7.0); Eosinophil (Absolute #) 0.37 x10^3/uL (0.04-0.54); Hematocrit 33.8 % (40.1-51.0); Hemoglobin 11.6 g/dL (13.7-17.5); IMMATURE GRAN # 0.02 x10^3u/L (0.001-0.031); IMMATURE GRAN % 0.2 % (0.001-0.429); Lymphocyte (Absolute #) 2.27 x10^3/uL (1.32-3.57); Lymphocytes % 27.6 % (21.8-53.1); Mean Cell Volume 92.9 fL (79.0-92.2); Mean Corpuscular Hemoglobin 31.9 pg (25.7-32.2); Mean Corpuscular Hgb Concent. 34.3 g/dL (32.3-36.5); Mean Platelet Volume 10.3 fL (9.4-12.4); Monocyte (Absolute #) 0.67 x10^3/uL (0.30-0.82); Monocytes % 8.2 % (5.3-12.2); Neutrophil % 59.1 % (34.0-67.9); Platelet Count 196 x10^3/uL (163-337); Red Blood Count 3.64 x10^6/uL (4.63-6.08); Red Cell Distribution Width 11.9 % (11.6-14.4); White Blood Count 8.2 x10^3/uL (4.23-9.07)
[2024-06-28 06:17] LABS: ALBUMIN 3.8 g/dL (3.5-5.0); ANION GAP 11.1 MEQ/L (5-15); BILIRUBIN,TOTAL 0.5 mg/dL (0.2-1.3); Calcium 9.1 mg/dL (8.4-10.2); Creatinine 1 0.93 mg/dL (0.66-1.25); EST GLOMERULAR FILTRATION RATE 98.2 ML/MIN; Potassium 3.9 mmol/L (3.5-5.1); Total Protein 6.7 g/dL (6.3-8.2)
[2024-06-28 06:49] VITALS: TEMP 97.9
[2024-06-28] MEDS ORDERED: Morphine PCA 1 MG/ML IV PRN (06:57)
[2024-06-28] MEDS ORDERED: MORPHINE SULFATE 2 MG INJ IV STA (07:42)
[2024-06-28] MEDS ORDERED: DIPRIVAN 200 MG/20 ML IV ONE (07:47)
[2024-06-28] MEDS ORDERED: TORAdol 30 mg Injection ONE ×3 (07:47→09:29)
[2024-06-28] MEDS ORDERED: Decadron 4 MG INJ ONE (07:47)
[2024-06-28] MEDS ORDERED: Xylocaine-Mpf 2% 5 Ml Vial ONE (07:47)
[2024-06-28] MEDS ORDERED: Zofran 4 MG/2 ML VIAL ONE (07:47)
[2024-06-28] MEDS ORDERED: Quelicin Fliptop 200 MG/10 ML ONE (07:48)
[2024-06-28] MEDS ORDERED: Ketamine HCl 50 MG/ML ONE (07:48)
[2024-06-28] MEDS ORDERED: Versed 2 MG/2 ML Injection ONE ×2 (07:57→12:01)
[2024-06-28] MEDS ORDERED: DEXMEDETOMIDINE 80 MCG/20ML-NS IV ONE (07:59)
[2024-06-28] MEDS ORDERED: OFIRMEV 100 ML IV ONE (07:59)
[2024-06-28] MEDS ORDERED: KEFZOL 1 GM ONE (08:08)
[2024-06-28] MEDS ORDERED: Lactated Ringers 500 ML IV ONE (08:29)
[2024-06-28] MEDS ORDERED: Sensorcaine 0.25% 10 ML ONE (08:32)
[2024-06-28] MEDS: PHARMACY DOSING REQUIRED: MORPHINE PCA IV ONE (10:32)
[2024-06-28] MEDS ORDERED: Marcaine 0.5%/Epinephrine 10 ML ONE (11:37)
[2024-06-28] MEDS ORDERED: EXPAREL 133 MG/10 ML VIAL IJ ONE (11:38)
[2024-06-28] MEDS ORDERED: Marcaine Mpf 0.5% Vial 30 Ml ONE (11:42)
--- NOTE | 2024-06-28 11:59 | PCM.DS ---
Discharge Summary Date of Admission: 06/27/24 17:52 Date of Discharge: 06/28/24 Admitting Physician: PETRONA SALINAS MD Consults: Consults on Case 06/27/24 18:24 Consult Ortho ROUTINE Primary Care Provider: NO FAMILY DOCTOR Allergies Allergies Iodine and Iodide Containing Produc Allergy (Severe, Verified 06/27/24 16:31) throat closes up Penicillins Allergy (Unknown, Verified 06/27/24 18:04) Hospital Summary - Hospital Course Hospital Course: is a 54 year old male with a pmhx of anxiety who presented to ED 06/27/24 after lacerating his left forearm using a scissors grinder during work at a pproximately 4pm today . 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 Patient currently is rating his pain 10/10 on a numerical pain scale. Pain is constant and throbbing. No motor deficits. Some numbness in his fingers. No other injury or complaints. Xray of the left forearm demonstrates proximal soft tissue laceration lateral to the radius. Labs remarkable for normocytic anemia with hgb at 12.2, and GAP at 17.8. Ortho consulted and exploration and repair of the muscle belly and the cutaneous nerve if seen performed. Patient received Cefazolin, morphine, and IVF bolus in ED. Wound was washed out with saline by ortho. Patient received nerve block for pain. Cleared by surgery. He will have a 1 pound lift restriction for 3 weeks - shower okay on day 5, dressing to be changed on day 3. Follow up with ortho in 2 weeks. Patient agreeable to plan and stable for discharge this afternoon after nerve block placed and pain is controlled. Discharge Note Follow Up: Ortho Latest Assessment & Plan (1) Laceration of left forearm with complication Current Visit: Yes Status: Acute Assessment & Plan: -xray of the left forearm demonstrates proximal soft tissue laceration lateral to the radius -Ortho consulted, note reviewed, agree with plan for surgical intervention 06/28/24 for exploration and repair of the muscle belly and the cutaneous nerve if seen -Cefazolin given in ED -Reviewed CMP and CBC -NPO after midnight -Hold anticoagulation Code(s): S51.812A - LACERATION WITHOUT FOREIGN BODY OF LEFT FOREARM, INIT ENCNTR (2) Anxiety Current Visit: Yes Status: Acute Assessment & Plan: -continue home meds Code(s): F41.9 - ANXIETY DISORDER, UNSPECIFIED (3) Normocytic anemia Current Visit: Yes Status: Acute Assessment & Plan: -CBC reviewed, hgb at 12.2- will monitor and replace if hgb <7 I spent 35 minutes [id number] with the patient on the day of discharge performing discharge exam, discussing hospital stay and discharge instructions with patient and caregivers, preparation of discharge records, prescriptions & referral forms and addressing any questions/concerns the patient had as documented above. - Vitals & Intake/Output Vital Signs: Vital Signs Temperature 97.9 F 06/28/24 06:57 Pulse Rate 48 L 06/28/24 06:57 Respiratory Rate 16 06/28/24 07:46 Blood Pressure 116/67 06/28/24 06:57 O2 Sat by Pulse Oximetry 98 06/28/24 06:57 Intake & Output: Intake & Output 06/25/24 06/26/24 06/27/24 06/28/24 11:59 11:59 11:59 11:59 Intake Total 0 Output Total 650 Balance -650 Weight 83.915 kg - Lab Result Diagrams: 06/28/24 05:54 06/28/24 05:54 Lab Results-Last 24 Hrs: Lab Results-Last 24 Hours 06/27/24 06/27/24 06/28/24 Range/Units 16:28 16:28 05:54 WBC 8.6 8.2 (4.23-9.07) x10^3/uL RBC 3.80 L 3.64 L (4.63-6.08) x10^6/uL Hgb 12.2 L 11.6 L (13.7-17.5) g/dL Hct 34.8 L 33.8 L (40.1-51.0) % MCV 91.6 92.9 H (79.0-92.2) fL MCH 32.1 31.9 (25.7-32.2) pg MCHC 35.1 34.3 (32.3-36.5) g/dL RDW 11.6 11.9 (11.6-14.4) % Plt Count 233 196 (163-337) x10^3/uL MPV 10.0 10.3 (9.4-12.4) fL Gran % 50.6 59.1 (34.0-67.9) % Immature Gran % (Auto) 0.2 0.2 (0.001-0.429) % Nucleat RBC Rel Count 0.0 0.0 (0.00-0.2) % Eos # (Auto) 0.49 0.37 (0.04-0.54) x10^3/uL Immature Gran # (Auto) 0.02 0.02 (0.001-0.031) x10^3u/L Absolute Lymphs (auto) 3.16 2.27 (1.32-3.57) x10^3/uL Absolute Monos (auto) 0.54 0.67 (0.30-0.82) x10^3/uL Absolute Nucleated RBC 0.00 0.00 (0.00-0.012) x10^3u/L Lymphocytes % 36.6 27.6 (21.8-53.1) % Monocytes % 6.3 8.2 (5.3-12.2) % Eosinophils % 5.7 4.5 (0.8-7.0) % Basophils % 0.6 0.4 (0.2-1.2) % Absolute Granulocytes 4.37 4.86 (1.78-5.38) x10^3/uL Basophils # 0.05 0.03 (0.01-0.08) x10^3/uL Sodium 141 (135-145) mmol/L Potassium 3.9 (3.5-5.1) mmol/L Chloride 104 (98-107) mmol/L Carbon Dioxide 23 (22-30) mmol/L Anion Gap 17.8 H (5-15) MEQ/L BUN 19 (9-20) mg/dL Creatinine 1.15 (0.66-1.25) mg/dL Estimated GFR 76.1 ML/MIN Glucose 148 H (74-106) mg/dL Calcium 9.3 (8.4-10.2) mg/dL Total Bilirubin 0.40 (0.2-1.3) mg/dL AST 33 (17-59) U/L ALT 25 (0-50) U/L Alkaline Phosphatase 61 (38-126) U/L Serum Total Protein 7.4 (6.3-8.2) g/dL Albumin 4.3 (3.5-5.0) g/dL 06/28/24 Range/Units 05:54 WBC (4.23-9.07) x10^3/uL RBC (4.63-6.08) x10^6/uL Hgb (13.7-17.5) g/dL Hct (40.1-51.0) % MCV (79.0-92.2) fL MCH (25.7-32.2) pg MCHC (32.3-36.5) g/dL RDW (11.6-14.4) % Plt Count (163-337) x10^3/uL MPV (9.4-12.4) fL Gran % (34.0-67.9) % Immature Gran % (Auto) (0.001-0.429) % Nucleat RBC Rel Count (0.00-0.2) % Eos # (Auto) (0.04-0.54) x10^3/uL Immature Gran # (Auto) (0.001-0.031) x10^3u/L Absolute Lymphs (auto) (1.32-3.57) x10^3/uL Absolute Monos (auto) (0.30-0.82) x10^3/uL Absolute Nucleated RBC (0.00-0.012) x10^3u/L Lymphocytes % (21.8-53.1) % Monocytes % (5.3-12.2) % Eosinophils % (0.8-7.0) % Basophils % (0.2-1.2) % Absolute Granulocytes (1.78-5.38) x10^3/uL Basophils # (0.01-0.08) x10^3/uL Sodium 139 (135-145) mmol/L Potassium 3.9 (3.5-5.1) mmol/L Chloride 106 (98-107) mmol/L Carbon Dioxide 25 (22-30) mmol/L Anion Gap 11.1 (5-15) MEQ/L BUN 14 (9-20) mg/dL Creatinine 0.93 (0.66-1.25) mg/dL Estimated GFR 98.2 ML/MIN Glucose 96 (74-106) mg/dL Calcium 9.1 (8.4-10.2) mg/dL Total Bilirubin 0.50 (0.2-1.3) mg/dL AST 28 (17-59) U/L ALT 19 (0-50) U/L Alkaline Phosphatase 60 (38-126) U/L Serum Total Protein 6.7 (6.3-8.2) g/dL Albumin 3.8 (3.5-5.0) g/dL - Radiology Exams Ordered Rad Exams-Entire Visit: Radiology Procedures Category Date Time Status FOREARM Stat Exams 06/27/24 16:14 Completed Discharge Exam General Appearance: no apparent distress Neurologic Exam: alert, oriented x 3, cooperative Eye Exam: PERRL Ears, Nose, Throat Exam: normal ENT inspection Neck Exam: normal inspection Respiratory Exam: normal breath sounds, lungs clear Cardiovascular Exam: regular rate/rhythm, normal heart sounds Gastrointestinal/Abdomen Exam: soft, normal bowel sounds Male Genitalia Exam: deferred Rectal Exam: deferred Back Exam: normal inspection Extremity Exam: other (Left forearm with surgical dressing, CDI) Skin Exam: normal color Wound Assessment: Skin/Wound Assessment Wound/Incision Assessment Start: 06/27/24 18:16 Text: Status: Active Freq: Q4H Protocol: Document 06/28/24 07:46 RB (Rec: 06/28/24 07:51 RB [id number]) Wound/Incision Assessment Left Lower Arm Wound Assessment Shift Assessment Wound Type Laceration Wound Stage Non Pressure Wound Comment dressing in place, pt to surgery at this time Wound Photo Photo Taken No Final Diagnosis/Problem List - Final Discharge Diagnosis/Problem (1) Laceration of left forearm with complication Current Visit: Yes Status: Acute Code(s): S51.812A - LACERATION WITHOUT FOREIGN BODY OF LEFT FOREARM, INIT ENCNTR (2) Anxiety Current Visit: Yes Status: Chronic Code(s): F41.9 - ANXIETY DISORDER, UNSPECIFIED (3) Normocytic anemia Current Visit: Yes Status: Chronic Code(s): D64.9 - ANEMIA, UNSPECIFIED - Discharge Disposition: Home, Self-Care Condition: Stable Prescriptions: New Hydrocodone/Acetaminophen [Hydrocodone-Acetamin 7.5-325] 1 each PO Q4H PRN PRN #18 tablet MDD 6 PRN Reason: Moderate To Severe Pain Naloxone HCl [Narcan] 4 mg NS UD #1 kit Continue RX: buprenorphine HCL [Buprenorphine HCl] 8 mg SL TID RX: Prazosin HCl 2 mg PO HS RX: Buspirone HCl 5 mg [Buspar 5 mg] 10 mg PO BID RX: Acyclovir 400 mg PO UD PRN PRN Reason: herpes Follow up with: SADIQ MCHUGH MD [ACTIVE STAFF] - PARAMJIT KABA NP [NON-STAFF PHY W/O PRIVILEGES] - 07/12/24 10:30 am
[2024-06-28] MEDS ORDERED: Sodium Chloride 0.9% 1000 ML 1,000 ML IV SCH (12:00)
[2024-06-28] MEDS: TYLENOL 325 MG PO PRN (15:21)
[2024-06-28 15:28] VITALS: BP 111/62; PULSE 65
[2024-06-28] MEDS: PERCOCET TABLET 5/325MG PO PRN (15:49)
[2024-06-28 17:32] VITALS: O2SAT 93
[2024-06-28 17:39] VITALS: RESP 12
--- NOTE | 2024-06-29 11:14 | OP ---
SURGERY DATE/TIME: 06/28/2024 [id number] DIAGNOSIS: Left forearm laceration with extensor muscle floor laceration with 6 cm wound. PROCEDURE: Incision and drainage with exploration of left forearm laceration with repair of muscle, subcutaneous tissue and skin of 6 cm laceration. SURGEON: Sage Way MD ANESTHESIA: General. ESTIMATED BLOOD LOSS: Zero. FLUIDS: Per the Anesthesia records. SPECIMENS: None. DRAINS: None. COMPLICATIONS: None. INDICATIONS: The patient is a 54-year-old white male who lacerated his left forearm at work with a surface grinder tender yesterday. He had numbness. It was thought that the forearm should be explored to make sure he did not cut his lateral brachial cutaneous nerve. DESCRIPTION OF PROCEDURE AND FINDINGS: The patient was seen in the holding room. Identified the left arm as correct; this was initialed by me. He had 2 g of Kefzol. He had general anesthesia. He had sterile prepping and draping of his left upper extremity in the supine position. We used Hibiclens. He had a time-out performed by me. He had sutures removed and then, the wound was irrigated with a pulse lavage with saline. The wound was explored with no nerve seen, lacerated. The common extensor muscle body approximately about 3 to 4 cm distal to the elbow was seen full-thickness but not the entire extensor wad. This was then repaired using 0 Vicryl to catch the muscle fibers and the fascia with interrupted sutures. The tourniquet was then released. There was minimal bleeding. Subcutaneous tissue was then closed with 2-0 Vicryl interrupted and the skin with 3-0 nylon. The wound was infiltrated with 8 mL of 0.25% Marcaine with epinephrine. Sterile dressing was applied. The patient was left stable in the OR. PLAN: For patient to go home on [place] 7.5 mg 1 p.o. q.4 h. p.r.n. dispense 18. He will notify his doctor that has him on Suboxone that he was given this pain medicine. He may also take ibuprofen along with this. He will return in 10 to 12 days for suture removal. He may be on light duty with restrictions of no use of the left arm until seen back. He may remove the dressing postop day 3 and shower postop day 5.
== END 2024-06-28 16:21 | disposition home or self-care (01) ==
LOC: ED 16:13 → MED SURG 17:52
PROVIDERS: ADMIT Internal Medicine; ATTEND Internal Medicine
DX: S56.922A Laceration of unspecified muscles, fascia and tendons at forearm level, left arm, initial encounter (principal); F41.9 Anxiety disorder, unspecified; D64.9 Anemia, unspecified; R73.9 Hyperglycemia, unspecified; Z79.899 Other long term (current) drug therapy; Y28.8XXA Contact with other sharp object, undetermined intent, initial encounter; Z04.2 Encounter for examination and observation following work accident
CPT/HCPCS: 20103; 24341; 36000; 36415; 73090; 80053; 85025; 96360; 96372; 96374; 96375; 99285; Q3014; 93268; J0330; J0690; J1100; J1885; J2250; J2270; J2405; J2704; A9270-GY; G0378